=== PATIENT | female | born 1960 | race Caucasian/White ===

== ENCOUNTER 2017-02-14 07:12 | Day surgery (SDC) | payer OTHER ==
[~2017-02-14] VITALS: Ht 170.2 cm; Wt 69.9 kg
[2017-02-14] VITALS (8 sets, daily range): BP systolic 101–132; BP diastolic 67–75; PULSE 58–72; TEMP 98.3
[2017-02-14] MEDS ORDERED: PRINIVIL10 MG PO (07:48)
[2017-02-14] MEDS ORDERED: ASPIRIN E.C. 8181 MG PO (07:49)
[2017-02-14] MEDS ORDERED: DESYREL 50MG50 MG PO (07:49)
[2017-02-14] MEDS ORDERED: DUO-KAPS1 CAP PO (07:50)
[2017-02-14] MEDS ORDERED: GLUCOSAMINE 1000 PO (07:50)
[2017-02-14] MEDS ORDERED: TURMERIC500 MG PO (07:51)
[2017-02-14] MEDS ORDERED: PROBIOTIC FORMU1 CAP PO (07:51)
[2017-02-14] MEDS ORDERED: MELATONIN5 M1 PO (07:52)
== END 2017-02-14 10:40 | disposition home or self-care (01) ==
LOC: SDCO 07:12
DX: Z12.11 Encounter for screening for malignant neoplasm of colon (principal); K57.30 Diverticulosis of large intestine without perforation or abscess without bleeding; K64.0 First degree hemorrhoids; I10 Essential (primary) hypertension; Z90.710 Acquired absence of both cervix and uterus
CPT/HCPCS: OP; J2250; J2405; J3010; J7030